=== PATIENT | male | born 1935 | race Caucasian/White ===

== ENCOUNTER → 2017-12-23 | Outpatient (CLI) | payer MEDICARE, OTHER | LOC: LAB.O 08:52 | PROVIDERS: ATTEND Internal Medicine | DX: R07.89 Other chest pain (principal); R09.89 Other specified symptoms and signs involving the circulatory and respiratory systems; Z12.5 Encounter for screening for malignant neoplasm of prostate; I10 Essential (primary) hypertension; I49.5 Sick sinus syndrome; E78.2 Mixed hyperlipidemia; I48.0 Paroxysmal atrial fibrillation; Z79.899 Other long term (current) drug therapy | CPT/HCPCS: 36415; 80053; 80061; 84443; 85025; G0103 ==

== ENCOUNTER → 2019-06-24 | Outpatient (CLI) | payer MEDICARE, BC | LOC: LAB.O 08:45 | PROVIDERS: ATTEND Internal Medicine | DX: I10 Essential (primary) hypertension (principal); I49.5 Sick sinus syndrome; E78.2 Mixed hyperlipidemia; I48.0 Paroxysmal atrial fibrillation; I65.23 Occlusion and stenosis of bilateral carotid arteries; Z12.5 Encounter for screening for malignant neoplasm of prostate | CPT/HCPCS: 36415; 80053; 80061; 84443; 85025; G0103 ==